=== PATIENT | female | born 1950 | race Hispanic/Latino ===

== ENCOUNTER 2017-06-27 19:50 | Emergency (ER) | payer MEDICARE, OTHER ==
--- NOTE | 2017-06-27 20:49 | RAD ---
FOUR VIEWS OF THE RIGHT KNEE: 06/27/17 COMPARISON: None. HISTORY: Right knee pain after falling on ice. FINDINGS: Four views of the right knee shows no evidence of acute fracture or dislocation. There is a very mini mal knee effusion. No focal soft tissue swelling is seen. No degenerative changes are present. IMPRESSION: No evidence of acute osseous abnormality. POS: [facility]
== END 2017-06-27 21:20 | disposition home or self-care (01) ==
LOC: ERS 19:50
DX: S89.91XA Unspecified injury of right lower leg, initial encounter (principal); Z79.899 Other long term (current) drug therapy; W19.XXXA Unspecified fall, initial encounter